=== PATIENT | female | born 1960 | race Hispanic/Latino ===

== ENCOUNTER 2022-01-31 17:04 | Emergency (ER) | payer SELFPAY ==
[2022-01-31] MEDS ORDERED: TETANUS,DIPH,PERTUSS(ACELL) VACCINE 0.5 ML SYRINGE IM ONE (18:09)
[2022-01-31] MEDS ORDERED: ONDANSETRON 4 MG/2 ML INJ IV ONE (18:19)
[2022-01-31] MEDS ORDERED: MORPHINE 4 MG/1 ML INJ IV ONE (18:19)
--- NOTE | 2022-01-31 18:25 | Emergency Department Report ---
ED General Adult HPI - General Chief complaint: Psych Stated complaint: SUCIDIAL Time Seen by Provider: 01/31/22 17:57 Source: patient, EMS Mode of arrival: Stretcher Limitations: No Limitations - History of Present Illness Initial comments: patient presents with complaintsa of an attempt to kill herself by cutting into her L wrist. Patient also endorses homicidal thoughts. Denies visual and auditory hallucinations. Has a hx of depression. Denies numbness, weakness in the L hand distally. - Related Data Allergies Allergy/AdvReac Type Severity Reaction Status Date / Time No Known Allergies Allergy Verified 01/31/22 17:16 ED Review of Systems ROS: Stated complaint: SUCIDIAL Other details as noted in HPI Comment: All other systems reviewed and negative Constitutional: denies: chills, fever ED Past Medical Hx - Past Medical History Additional medical history: Depression ED Physical Exam - General Limitations: No Limitations General appearance: alert, in no apparent distress - Head Head exam: Present: atraumatic, normocephalic - Eye Eye exam: Present: PERRL, EOMI - ENT ENT exam: Present: mucous membranes moist, other (airway patent) - Neck Neck exam: Present: other (supple; no JVD) - Respiratory Respiratory exam: Present: other (good air entry, nml I:E, CTAB, no use of LAMINE) - Cardiovascular Cardiovascular Exam: Present: regular rate. Absent: rubs, gallop - GI/Abdominal GI/Abdominal exam: Present: soft, normal bowel sounds. Absent: distended, tenderness, guarding, rebound - Extremities Exam Extremities exam: Present: other (longitudinal laceration ~ 5 cm in length in L vental distal forearm, deep to tendons with tendon involvement; radial pulses 2+ bilaterally and equal; sensation intactr distally) - Back Exam Back exam: Present: full ROM - Psychiatric Psychiatric exam: Present: normal affect, homicidal ideation, suicidal ideation - Skin Skin exam: Present: other (see extremities) ED Course Vital Signs 01/31/22 17:14 Pulse Rate 88 Respiratory 18 Rate Blood Pressure 137/99 [Left] O2 Sat by Pulse 95 Oximetry ED Medical Decision Making - Lab Data Result diagrams: 01/31/22 18:29 01/31/22 18:29 Laboratory Tests 01/31/22 01/31/22 01/31/22 18:29 18:29 18:29 WBC 9.7 RBC 3.65 Hgb 11.6 Hct 34.8 MCV 95 MCH 32 MCHC 33 RDW 13.4 Plt Count 276 Lymph % (Auto) 12.8 L [place] % (Auto) 10.0 H Eos % (Auto) 0.9 Baso % (Auto) 0.7 Lymph # (Auto) 1.2 [place] # (Auto) 1.0 H Eos # (Auto) 0.1 Baso # (Auto) 0.1 Seg Neutrophils % 75.6 H Seg Neutrophils # 7.3 Sodium 139 Potassium 3.7 Chloride 98.2 Carbon Dioxide 31 H Anion Gap 14 BUN 14 Creatinine 1.1 Estimated GFR 51 BUN/Creatinine Ratio 13 Glucose 112 H Calcium 9.0 Total Bilirubin 0.30 AST 27 ALT 14 Alkaline Phosphatase 98 Total Protein 5.9 L Albumin 3.9 Albumin/Globulin Ratio 2.0 Salicylates < 0.3 L Acetaminophen Plasma/Serum Alcohol 01/31/22 01/31/22 18:29 18:29 WBC RBC Hgb Hct MCV MCH MCHC RDW Plt Count Lymph % (Auto) [place] % (Auto) Eos % (Auto) Baso % (Auto) Lymph # (Auto) [place] # (Auto) Eos # (Auto) Baso # (Auto) Seg Neutrophils % Seg Neutrophils # Sodium Potassium Chloride Carbon Dioxide Anion Gap BUN Creatinine Estimated GFR BUN/Creatinine Ratio Glucose Calcium Total Bilirubin AST ALT Alkaline Phosphatase Total Protein Albumin Albumin/Globulin Ratio Salicylates Acetaminophen 5.0 L Plasma/Serum Alcohol < 0.01 UA, U tox pending X-ray L wrist: no fracture, dislocation or radioopaque foreign body - Medical Decision Making 1013 signed Received tetanus shot IM x [address] Orth[address] coverage [address]. Dr. Lackey (Hand surgeon @ [facility]) called for transfer. He accepted the patient in transfer. Critical care attestation.: If time is entered above; I have spent that time in minutes in the direct care of this critically ill patient, excluding procedure time. ED Disposition Clinical Impression: Suicide attempt, Laceration of wrist, left, with tendon involvement Disposition: 02 SHORT TERM HOSPITAL Is pt being admited?: No Does the pt Need Aspirin: No Condition: Stable Time of Disposition: 20:40 (Patient transferred to Dr. Lackey (Hand surgeon @ [facility]). Sign out was given by me to the accepting physician. )
--- NOTE | 2022-01-31 18:38 | XRay Report ---
XR wrist 2V LT INDICATION / CLINICAL INFORMATION: laceration. COMPARISON: None available. FINDINGS: There is gas related to alaceration in the ventral forearm. No acute fracture. Normal alignment. [place] int spaces are preserved. No destructive osseous lesion or suspicious periosteal reaction. Impression: 1.No acute fracture. Signer Name: Kyle Rubi MD Signed: 01/31/2022 6:33 PM Workstation Name: [id number]
[2022-01-31 19:06] LABS: Basophils # (Auto) 0.1 K/mm3 (0.0-0.1); Basophils % (Auto) 0.7 % (0.0-1.8); Eosinophils # (Auto) 0.1 K/mm3 (0.0-0.4); Eosinophils % (Auto) 0.9 % (0.0-4.3); Hematocrit 34.8 % (30.3-42.9); Hemoglobin 11.6 gm/dl (10.1-14.3); Lymphocytes # (Auto) 1.2 K/mm3 (1.2-5.4); Lymphocytes % (Auto) 12.8 % (13.4-35.0); Mean Corpuscular HGB Conc 33 % (30-34); Mean Corpuscular Volume 95 fl (79-97); Platelet Count 276 K/mm3 (140-440); Red Blood Count 3.65 M/mm3 (3.65-5.03); Red Cell Distribution Width 13.4 % (13.2-15.2)
[2022-01-31 19:33] LABS: Albumin 3.9 g/dL (3.9-5)
[2022-02-01 00:07] VITALS: BP 112/65
== END 2022-02-01 02:50 | disposition short-term general hospital (02) ==
LOC: ED 17:04
DX: T14.91XA Suicide attempt, initial encounter (principal); S61.512A Laceration without foreign body of left wrist, initial encounter; F32.9 Major depressive disorder, single episode, unspecified; X78.1XXA Intentional self-harm by knife, initial encounter; Y93.89 Activity, other specified; Y92.89 Other specified places as the place of occurrence of the external cause; Y99.8 Other external cause status
CPT/HCPCS: 36415; 73100; 80053; 85025; 90471; 90715; 96374; 96375; 99285; J2270; J2405; 80320; G0480

== ENCOUNTER 2022-02-15 20:38 | Emergency (ER) | payer SELFPAY ==
--- NOTE | 2022-02-15 22:03 | Emergency Department Report ---
HPI - General Chief Complaint: Weakness Time Seen by Provider: 02/15/22 21:50 - HPI HPI: Charge nurse triage Patient is a 62-year-old female present with chief complaint of suicidal ideation. Patient was reportedly at an alcohol detox facility when she complained of lightheadedness. Patient was found to be hypotensive with a blood pressure in the 80s systolic. There is never had a syncopal episode. Upon arrival to the ED the patient was normotensive. Patient states she has a history of hypotension. While in the ED the patient told nursing staff that she just wants to . Patient states she feels like she just wants to disappear. Patient mitts to cutting her left wrist 2 weeks ago but denies any other attempts at harming herself ED Past Medical Hx - Past Medical History Previous Medical History?: Yes Hx Hypertension: No (Hypotension) Hx Psychiatric Treatment: Yes (depression, anxiety) Additional medical history: epilepsy, - Surgical History Past Surgical History?: No - Family History Family history: no significant - Social History Smoking Status: Never Smoker Substance Use Type: None (Denies illicit drug use), Alcohol (Currently in alcohol detox) ED Review of Systems ROS: Stated complaint: HYPOTENTION Other details as noted in HPI Constitutional: no symptoms reported Eyes: denies: eye pain ENT: denies: throat pain Respiratory: no symptoms reported Cardiovascular: denies: chest pain Endocrine: no symptoms reported Gastrointestinal: denies: abdominal pain Genitourinary: denies: dysuria Musculoskeletal: denies: back pain Neurological: denies: headache Psychiatric: suicidal thoughts Physical Exam - Physical Exam Vital Signs: Vital Signs 02/15/22 20:44 Temperature 98.2 F Pulse Rate 67 Respiratory 16 Rate Blood Pressure 108/72 O2 Sat by Pulse 100 Oximetry Physical Exam: GENERAL: The patient is well-developed well-nourished female lying on stretcher not appearing to be in acute distress. [] HEENT: Normocephalic. Atraumatic. Extraocular motions are intact. Patient has moist mucous membranes. NECK: Supple. Trachea midline CHEST/LUNGS: Clear to auscultation. There is no respiratory distress noted. HEART/CARDIOVASCULAR: Regular. There is no tachycardia. There is no gallop rub or murmur. ABDOMEN: Abdomen is soft, nontender. Patient has normal bowel sounds. There is no abdominal distention. SKIN: There is a subacute appearing linear laceration to the left wrist. No active drainage appreciated NEURO: The patient is awake, alert, and oriented. The patient is cooperative. The patient has no focal neurologic deficits. The patient has normal speech. GCS 15 MUSCULOSKELETAL: There is no evidence of acute injury. ED Course Vital Signs 02/15/22 20:44 Temperature 98.2 F Pulse Rate 67 Respiratory 16 Rate Blood Pressure 108/72 O2 Sat by Pulse 100 Oximetry ED Medical Decision Making - Lab Data Result diagrams: 02/15/22 22:23 02/15/22 22:23 - Differential Diagnosis Suicidal ideation Critical care attestation.: If time is entered above; I have spent that time in minutes in the direct care of this critically ill patient, excluding procedure time. ED Disposition Clinical Impression: Suicidal ideation Disposition: 30 STILL A PATIENT Is pt being admited?: No Does the pt Need Aspirin: No Condition: Stable
[2022-02-15 22:45] LABS: Basophils # (Auto) 0.2 K/mm3 (0.0-0.1); Basophils % (Auto) 1.8 % (0.0-1.8); Eosinophils # (Auto) 0.1 K/mm3 (0.0-0.4); Eosinophils % (Auto) 1.3 % (0.0-4.3); Hematocrit 34.8 % (30.3-42.9); Hemoglobin 11.6 gm/dl (10.1-14.3); Lymphocytes # (Auto) 1.9 K/mm3 (1.2-5.4); Mean Corpuscular HGB Conc 33 % (30-34); Mean Corpuscular Volume 96 fl (79-97); Monocytes # (Auto) 0.7 K/mm3 (0.0-0.8); Monocytes % (Auto) 7.7 % (0.0-7.3); Platelet Count 336 K/mm3 (140-440); Red Blood Count 3.64 M/mm3 (3.65-5.03); Red Cell Distribution Width 13.6 % (13.2-15.2)
[2022-02-15 23:02] LABS: Alanine Aminotransferase 13 units/L (7-56); Albumin 3.7 g/dL (3.9-5); BUN/Creatinine Ratio 16; Blood Urea Nitrogen 14 mg/dL (7-17); Calcium 9.4 mg/dL (8.4-10.2); Hemolysis Index 5
[2022-02-16] MEDS ORDERED: SODIUM CHLORIDE 0.9% 1000 ML 1,000 ML IV ONE (04:03)
[2022-02-16] MEDS: cephALEXin 500 MG CAP PO SCH ×3 (06:11→17:40)
[2022-02-16 07:12] LABS: Bilirubin,Urine NEG (Negative); Blood,Urine NEG (Negative); Color,Urine Yellow (Yellow); Protein,Urine <15 mg/dL mg/dL (Negative); Urobilinogen,Urine < 2.0 mg/dL (<2.0)
[2022-02-16 07:20] LABS: Amphetamine Screen,Urine Negative; Benzodiazepines Screen,Urine Negative; Cannabinoid Screen,Urine Negative; Cocaine Screen,Urine Negative; Methadone Screen,Urine Negative; Opiate Screen,Urine Negative
[2022-02-16 07:23] LABS: Hyaline Casts,Urine 1 /LPF; Mucus,Urine FEW /HPF
--- NOTE | 2022-02-16 11:22 | Consultation ---
History of Present Illness - Reason for Consult Consult date: 02/16/22 Reason for consult: depression, SI - History of Present Psychiatric Illness HPI: Patient is a 62-year-old female present with chief complaint of suicidal ideation. Patient was reportedly at an alcohol detox facility when she complained of lightheadedness. Patient was found to be hypotensive with a blood pressure in the 80s systolic. There is never had a syncopal episode. Upon arr ival to the ED the patient was normotensive. Patient states she has a history of hypotension. While in the ED the patient told nursing staff that she just wants to . Patient states she feels like she just wants to disappear. Patient mitts to cutting her left wrist 2 weeks ago but denies any other attempts at harming herself. The patient was seen today. She is calm and cooperative. She states she doesn't remember a lot of stuff, however she is a/o x 3. The patient says she was at [facility], then to [facility]. She says she could not remember why she was brought here. 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 The patient says she has a history of depression and anxiety, and takes "celexa, trazodone, and vistaril." The patient denies SI/HI, but then states "what is there left to do." She denies hallucinations. REVIEW OF SYSTEMS ROS cannot be reliably obtained from the patient due to her confusion and s omnolence. Constitutional: Negative for weight loss ENT: Negative for stridor Respiratory: Negative for cough or hemoptysis All other systems reviewed and are negative MENTAL STATUS EXAMINATION General Appearance and Behavior: Age appropriate, wearing appropriate clothes, c ooperative, polite with questioning, good eye contact Cooperation: cooperative Psychomotor Behavior: Psychomotor normal Mood: depressed Affect and affective range: congruent with stated affect Thought Process: circumstantial Thought Content: hopelessness Speech: Normal volume, Regular rate and rhythm Suicidal Ideation: Denies, but passive thoughts of dying Homicidal Ideation: Denies Hallucination: Denies Delusions: None elicited Impulse Control: Limited Insight and Judgment: Limited Memory: limited Attention:attentive Orientation: Alert and oriented Assessment: Major Depressive Disorder Treatment Plan 1013 Celexa 20mg po daily Vistaril 25mg po BID Trazodone 50mg po qhs Sitter: defer to primary Medical: per primary Disposition: Recommend acute psychiatric inpatient treatment Will follow. Thanks. Case staffed with Dr. Yen Medications and Allergies Allergies Allergy/AdvReac Type Severity Reaction Status Date / Time divalproex sodium Allergy Anaphylaxis Verified 02/16/22 04:07 [From Depakote] Active Meds: Active Medications Cephalexin (Cephalexin 500 Mg Cap) 500 mg PO Q6H [facility]; Protocol Stop: 02/22/22 06:00 Last Admin: 02/16/22 06:11 Dose: 500 mg Mental Status Exam - Vital signs Last Vital Signs Temp 98.5 F 02/16/22 09:19 Pulse 68 02/16/22 09:19 Resp 68 H 02/16/22 09:19 BP 104/74 02/16/22 09:19 Pulse Ox 99 02/16/22 09:19 Results Result Diagrams: 02/15/22 22:23 02/15/22 22:23 Abnormal lab results 02/15/22 02/15/22 02/15/22 Range/Units 22:23 22:23 22:23 RBC 3.64 L (3.65-5.03) M/mm3 [place] % (Auto) 7.7 H (0.0-7.3) % Baso # (Auto) 0.2 H (0.0-0.1) K/mm3 Glucose 110 H (65-100) mg/dL Albumin 3.7 L (3.9-5) g/dL Salicylates < 0.3 L (2.8-20.0) mg/dL Acetaminophen (10.0-30.0) ug/mL 02/15/22 Range/Units 22:23 RBC (3.65-5.03) M/mm3 [place] % (Auto) (0.0-7.3) % Baso # (Auto) (0.0-0.1) K/mm3 Glucose (65-100) mg/dL Albumin (3.9-5) g/dL Salicylates (2.8-20.0) mg/dL Acetaminophen 5.0 L (10.0-30.0) ug/mL All other labs normal.
[2022-02-16] MEDS: CITALOPRAM 20 MG TAB PO SCH (11:48)
[2022-02-16] MEDS: hydrOXYzine PAMOATE 25 MG CAP PO SCH ×2 (11:48→22:29)
--- NOTE | 2022-02-16 15:49 | Event Note ---
Date: 02/16/22 Patient reassessed today by mental health emblem cutter who recommended to keep [address] She is currently in no acute distress and is not acutely psychotic. Denies SI or HI.
[2022-02-16] MEDS ORDERED: traZODone 50 MG TAB PO SCH (22:00)
[2022-02-17] MEDS: cephALEXin 500 MG CAP PO SCH ×2 (01:03→07:02)
[2022-02-17] MEDS ORDERED: SODIUM CHLORIDE 0.9% 1000 ML 2,000 ML IV ONE (04:27)
[2022-02-17 10:05] VITALS: BP 114/72
[2022-02-17] MEDS: CITALOPRAM 20 MG TAB PO SCH (10:13)
[2022-02-17] MEDS: hydrOXYzine PAMOATE 25 MG CAP PO SCH (10:14)
--- NOTE | 2022-02-17 10:18 | Progress Note ---
Subjective - Reason for Consult Consult date: 02/17/22 Reason for consult: depression, SI - Chief Complaint Chief complaint: The patient was seen today. The patient is calm and cooperative. She appears down. She says she has a problem "stuffing a lot of feelings." I discussed with the patient the importance of openly discussing her feeling and not internalizing. She says "it's so hard for me. Hardest thing is for me to express myself." The patient shows me her wrist where she cut herself. She says "this was when I was at [place]." She says she has thoughts of dying, but denies at present. The patient says "I know I need help, but I was wandering about outpatient." She says "I'm still depressed, but I feel hopeful now." Will continue recommendation for inpatient treatment. REVIEW OF SYSTEMS ROS cannot be reliably obtained from the patient due to her confusion and somnolence. Constitutional: Negative for weight loss ENT: Negative for stridor Respiratory: Negative for cough or hemoptysis All other systems reviewed and are negative MENTAL STATUS EXAMINATION General Appearance and Behavior: Age appropriate, wearing appropriate clothes, cooperative, polite with questioning, good eye contact Cooperation: cooperative Psychomotor Behavior: Psychomotor normal Mood: depressed Affect and affective range: congruent with stated affect Thought Process: circumstantial Thought Content: None Speech: Normal volume, Regular rate and rhythm Suicidal Ideation: Denies, but possibly passive Homicidal Ideation: Denies Hallucination: Denies Delusions: None elicited Impulse Control: Limited Insight and Judgment: Limited Memory: limited Attention:attentive Orientation: Alert and oriented Assessment: Major Depressive Disorder Treatment Plan 1013 Increase Celexa 40mg po daily Start Abilify 5mg po daily to augment Celexa for depression Vistaril 25mg po BID Trazodone 50mg po qhs Sitter: defer to primary Medical: per primary Disposition: Recommend acute psychiatric inpatient treatment Will follow. Thanks. Case staffed with Dr. Yen Mental Status Exam - Vital signs Last Vital Signs Temp 98.5 F 02/17/22 10:03 Pulse 73 02/17/22 10:03 Resp 18 02/17/22 10:03 BP 114/72 02/17/22 10:03 Pulse Ox 97 02/17/22 10:04
[2022-02-17] MEDS ORDERED: ARIPiprazole 5 MG TAB PO SCH (11:00)
[2022-02-18] MEDS ORDERED: CITALOPRAM 20 MG TAB PO SCH (10:00)
== END 2022-02-17 11:09 ==
LOC: ED 20:38
DX: R45.851 Suicidal ideations (principal); Z20.822 Contact with and (suspected) exposure to COVID-19
CPT/HCPCS: 36415; 80053; 80307; 81001; 85025; 96360; 96361; 99285; J7030; U0003; 80320; G0480